=== PATIENT | female | born 1960 | race Caucasian/White ===

== ENCOUNTER 2016-11-20 13:41 | Outpatient (CLI) | payer BC ==
--- NOTE | 2016-11-20 16:31 | DIAGNOSTIC IMAGING REPORT ---
PROCEDURE: US ABDOMEN ULTRASOUND-COMPLETE INDICATION: RUQ ABD PAIN TECHNIQUE: Bond scale and color Doppler sonographic images of the abdomen were obtained without comparison. COMPARISON: None. FINDINGS: The liver is normal in size, contour, and echotexture. No mass or intrahepatic biliary dilatation. The gallbladder is surgically absent No pericholecystic fluid or Delarosa sign. The extrahepatic common duct is normal measuring 4 mm The visualized pancreas is normal without ductal dilatation or peripancreatic fluid collection. The abdominal aorta is normal in its course and caliber. The retrohepatic inferior vena cava is patent. There is appropriate hepatopetal flow in the portal vein. The right kidney measures 9.5 cm in length. The left kidney measures 0.2 cm in length. Both kidneys demonstrate normal morphology and cortical thickness without hydronephrosis, cyst, solid mass, or shadowing calculus. Color Doppler imaging demonstrates normal blood flow in each kidney. The spleen is normal in size measuring 8.3 cm in length. There is no perihepatic or perisplenic ascites. IMPRESSION: 1. Normal abdominal ultrasound.
== END 2016-11-20 23:00 ==
LOC: US SRH 13:41
DX: R10.11 Right upper quadrant pain (principal)

== ENCOUNTER 2016-12-06 15:08 | Outpatient (CLI) | payer BC ==
--- NOTE | 2016-12-06 18:10 | DIAGNOSTIC IMAGING REPORT ---
PROCEDURE: MR ABDOMEN W/WO CONTRAST INDICATION: RUQ PAIN;ELEVATED LFT'S MRCP TECHNIQUE: Multiplanar multi-sequence MR imaging of the abdomen. MRCP imaging of the biliary system in oblique projections with 3-D reconstructions. Postcontrast axial dynamic imaging of the abdomen. COMPARISON: Abdominal ultrasound 11/20/2016. FINDINGS: Cholecystectomy. Normal common bile duct measures 5 mm. Normal pancreatic duct. No evidence of filling defect or biliary obstruction. Liver is normal size with normal appearance. No evidence of hepatic steatosis, mass or abnormal enhancement. Normal pancreas. Spleen, adrenal glands, kidneys and abdominal aorta are unremarkable. Nonspecific bowel gas pattern. There is a 1 cm lesion of the thoracolumbar spine, with increased T2 signal and some enhancement, indeterminate. IMPRESSION: 1. Cholecystectomy with normal common bile and pancreatic ducts. No evidence of distal obstruction. 2. Normal liver and pancreas 3. 1 cm thoracolumbar spine lesion. Recommend x-rays.
== END 2016-12-06 23:00 ==
LOC: MRI SRH 15:08
DX: R10.11 Right upper quadrant pain (principal); R94.5 Abnormal results of liver function studies

== ENCOUNTER 2017-02-22 10:24 | Outpatient (CLI) | payer BC ==
--- NOTE | 2017-02-22 10:50 | DIAGNOSTIC IMAGING REPORT ---
PROCEDURE: MG BILATERAL SCREENING W/CAD INDICATION: Screening. Family history breast carcinoma (grandmother). TECHNIQUE: Bilateral CC and MLO digital views. COMPARISON: Compared to prior studies from [facility] on 01/08/2015, 07/26/2012 and 07/19/2012. FINDINGS: Computer-aided detection applied. Moderately dense. No change. IMPRESSION: 1. Negative mammogram RESULT CODE: 1- Negative. A. A negative report should not delay biopsy if a dominant or clinically suspicious mass is present. 10-15% of cancers are not identified by x-ray. B. A negative report may reinforce clinical impression. C. Adenosis and dense breasts may obscure an underlying neoplasm. D. False positive reports average 6-10%. E.. A yearly screening mammogram is recommended. A reminder letter will be scheduled.
== END 2017-02-22 23:00 ==
LOC: MAM SRH 10:24
DX: Z12.31 Encounter for screening mammogram for malignant neoplasm of breast (principal)